=== PATIENT | male | born 2000 | race Caucasian/White ===

== ENCOUNTER 2019-05-17 05:51 | Day surgery (SDC) | payer OTHER ==
[2019-05-16 10:52] VITALS: BMI 24.3
[2019-05-17] MEDS ORDERED: PROPOFOL 20 ML ONE ×3 (07:08→07:58)
[2019-05-17] MEDS ORDERED: MIDAZOLAM HCL 2 MG/2 ML SINGLE DOSE VIAL ONE (07:09)
[2019-05-17] MEDS ORDERED: SUCCINYLCHOLINE CHLORIDE 200 MG/10 ML SYRINGE ONE (07:09)
[2019-05-17] MEDS ORDERED: LIDOCAINE HCL/PF 2% SDV 5ML VIAL ONE (07:10)
[2019-05-17] MEDS ORDERED: ONDANSETRON 4 MG/2 ML VIAL ONE (07:10)
[2019-05-17] MEDS ORDERED: KETOROLAC TROMETHAMINE 30 MG/1 ML VIAL ONE (07:10)
[2019-05-17] MEDS ORDERED: DEXAMETHASONE SOD PHOSPHATE 4 MG/1 ML VIAL ONE (07:10)
[2019-05-17] MEDS ORDERED: LIDOCAINE HCL 2% JELLY (5 ML/TUBE) ONE (07:10)
[2019-05-17] MEDS ORDERED: LIDOCAINE HCL 2% (20ML MULTI-DOSE VIAL) NR ONE (07:21)
[2019-05-17] MEDS ORDERED: BUPIVACAINE HCL/PF 2.5 MG/ML - 30 ML VIAL IJ ONE (07:21)
[2019-05-17] MEDS ORDERED: BUPIVACAINE HCL/EPINEPHRINE/PF 30 ML VIAL IJ ONE (07:34)
[2019-05-17] MEDS ORDERED: ceFAZolin SODIUM 1 GM VIAL ONE (07:53)
[2019-05-17] MEDS ORDERED: BUPIVACAINE HCL/PF 0.25% (2.5MG/ML) 10 ML VIAL IJ ONE (07:54)
--- NOTE | 2019-05-17 08:49 | OP ---
Operative Note - Note: Operative Date: 05/17/19 Pre-Operative Diagnosis: LEft leg painful hardware, soft tissue cyst/abscess Operation: left leg JAZZMINE, culture, cyst excision Post-Operative Diagnosis: Same as Pre-op Surgeon: Agustin Burciaga Anesthesia: General Operative Report Dictated: Yes
--- NOTE | 2019-05-17 08:50 | DS ---
Physical Examination Vital Signs: Vital Signs Temperature 98 F 05/17/19 06:30 Pulse Rate 75 05/17/19 06:30 Respiratory Rate 16 05/17/19 06:30 Blood Pressure 134/66 05/17/19 06:30 O2 Sat by Pulse Oximetry (%) 100 05/17/19 06:30 Discharge Summary Reason For Visit: PAINFUL HARDWARE LEFT KNEE Condition: Good - Instructions Diet, Activity, Other Instructions: Post Operative Instructions: Dr Agustin Burciaga 1. Pain following a leg surgery is variable. Some patients will have more pain than others. You have been provided with a prescription for medication that contains a narcotic. You are not allowed to drive while on this medication. You should take Tylenol (Acetaminophen) instead of taking the pain medication. Feel free to take medications such as Ibuprofen or Naprosyn in addition to the pain medicine if you do not have any problems with the NSAID class of medications. 2. You are allowed to remove the bandages and shower in 24 hours. You are not allowed to bathe or go swimming until the sutures are removed. Put band-aids on the sutures after your shower and do not put any creams or lotions over the incisions. 3. You are allowed to put all your weight on the leg and bend your knee. 4. Apply ice to the knee for 15 min every hour or so. You may continue this for as many days as you like. 5. Please call the office to schedule a visit to have your sutures removed. 6. If for any reason you believe you may have an infection or are concerned, please feel free to call me. I can be reached through our office number 24 hours a day. 7. Please call our office with any questions; we will review the surgical findings during your post operative visit. Disposition: HOME - Home Medications Comprehensive Discharge Medication List: Ambulatory Orders No Home Medications 0 dose .ROUTE UTDICT 09/03/13
[2019-05-17 09:31] VITALS: TEMP 97.8
[2019-05-17] MEDS ORDERED: oxyCODONE HCL 5 MG TABLET PO PRN ×2 (09:59)
[2019-05-17] MEDS ORDERED: ONDANSETRON 4 MG/2 ML VIAL IVPUSH PRN (09:59)
[2019-05-17] MEDS ORDERED: LACTATED RINGERS SOLUTION 1,000 ML IV SCH (10:00)
[2019-05-17 10:18] VITALS: BP 131/76; PULSE 72
[2019-05-17] MEDS ORDERED: ePHEDrine SULFATE 50 MG/1 ML AMPULE ONE (14:28)
--- NOTE | 2019-05-22 11:28 | PATH ---
Surgical Pathology Report Patient Name: SYDNEE ROGER [facility]. Rec. #: [id number] /Age/Gender: 2000 (Age: 18) / M Account: [id number] Location: [facility] Taken: 05/17/2019 Received: 05/17/2019 Reported: 05/22/2019 Physicians: Agustin Burciaga M.D. Specimen(s) Received A: CYST VS ABSCESS LEFT TIBIA B: HARDWARE LEFT KNEE Clinical History Painful hardware left knee Final Diagnosis A. CYST VERSUS ABSCESS LEFT TIBIA, EXCISION: FIBROCONNECTIVE TISSUE WITH CYSTIC SPACES LINED BY FIBROTIC TISSUE WITH MARKED HISTIOCYTIC REACTION AND FOCAL CALCIFICATION. B. HARDWARE LEFT KNEE, REMOVAL: CONSISTENT WITH HARDWARE. GROSS EXAMINATION ONLY. Electronically Signed Yasemin Hwang M.D. Gross Description A. Received in formalin, labeled "cyst versus abscess left tibia" is a portion of phelps soft tissue (1.5 x 1 x 0.5cm). Bisecting the tissue shows a cystic lesion. Multiple irregular portions of soft tissue cystic contents measuring 0.4 x 0.3 x 0.2 cm. in aggregate are also present. The specimens are submitted in toto in one cassette. B. Received in a container, labeled "hardware left knee" are one screw measuring 4.5 cm in length and 0.3 cm diameter. Separate one circular metal with a hole in the center measuring 1.8 cm in diameter and 0.2 cm in thickness. Gross examination only. __ KWSergey/05/20/2019 sharri/05/20/2019
== END 2019-05-17 10:00 | disposition home or self-care (01) ==
LOC: FASU 05:51
PROVIDERS: ATTEND Orthopaedic Surgery
PROC: 0JBP0ZZ Excision of Left Lower Leg Subcutaneous Tissue and Fascia, Open Approach (ICD-10-PCS; 2019-05-17)
PROC: 0SPD04Z Removal of Internal Fixation Device from Left Knee Joint, Open Approach (ICD-10-PCS; principal; 2019-05-17 07:53)
DX: T84.84XA Pain due to internal orthopedic prosthetic devices, implants and grafts, initial encounter (principal); Y79.1 Therapeutic (nonsurgical) and rehabilitative orthopedic devices associated with adverse incidents; Y92.9 Unspecified place or not applicable; L72.8 Other follicular cysts of the skin and subcutaneous tissue
CPT/HCPCS: 87070; 87205; 88300-TC; 88304-TC; 94760